=== PATIENT | male | born 1955 | race Caucasian/White ===

== ENCOUNTER 2018-05-25 12:03 | Day surgery (SDC) | payer BC ==
[~2018-05-25] VITALS: Ht 167.6 cm; Wt 59.8 kg
[2018-05-25] VITALS (10 sets, daily range): BP systolic 118–160; BP diastolic 48–87; PULSE 50–71; TEMP 97.4–97.7
[~2018-05-25 12:03] MED LIST: FLOMAX 0.40.4 MG/CAP PO; PERCOCET 325 MG1 TA2 PO; ULTRAM 50MG TAB50 MG PO
[2018-05-25] MEDS ORDERED: TENORMIN 2525 MG/TAB PO (12:59)
[2018-05-25] MEDS ORDERED: ULTRAM 50MG TAB50 MG PO (13:00)
[2018-05-25] MEDS ORDERED: MEVACOR40 MG PO (13:00)
[2018-05-25] MEDS ORDERED: ALTACE 5MG5 MG PO (13:00)
[2018-05-25] MEDS ORDERED: SYNTHROID0.1 MG/TAB PO (13:01)
[2018-05-25] MEDS ORDERED: ASPIRIN E.C. 8181 MG PO (13:04)
[2018-05-25] MEDS ORDERED: NATURAL POTASS595 MG PO (13:05)
--- NOTE | 2018-05-25 13:31 | NUR ---
new client banking services clerk consult placed due to pt stating "I cannot afford my medications or pick them up." Pt primary relies on his daughter to help transport but states she is not very dependable at times. Pt has not been taking prescribed medications for a month or more.
--- NOTE | 2018-05-25 15:25 | NUR ---
Pt to GI bay 6 via cart from PACU. Pt awake and alert. Denies pain. Pt feeling like he needs to void. Urinal placed for pt. Side rails up x2. Call light within reach.
--- NOTE | 2018-05-25 15:40 | NUR ---
Pt voids 100ml villagran red urine. Pt c/o pain to right flank. Muffin, juice and water given per pt request. Will continue to monitor. Call light within reach.
--- NOTE | 2018-05-25 15:57 | NUR ---
XAVIER met with patient's , Aisha, and daughter about not being able to afford medications. Aisha reports patient does have insurance and they normally get the medications from [facility]. Patient reports they are planning to switch to [facility] pharmacy because it is a less expensive options. SW also informed Aisha about [facility]. Aisha was not aware of this program but will utilize it. XAVIER reported back to patient's nurse.
--- NOTE | 2018-05-25 16:55 | NUR ---
The patient appears to be resting comfortably on the cart at this time. The patient appears to be tolerating the food and drink well. The patient's family was brought back to be at his bedside at this time.
[2018-05-25] MEDS ORDERED: PYRIDIUM 100MG100 MG PO (17:09)
[2018-05-25] MEDS ORDERED: NORCO 325 MG-51 TAB PO (17:10)
--- NOTE | 2018-05-25 17:20 | NUR ---
The patient was given a dose of Percocet one tab at this time for complaints of pain. The patient's remains at his besdide at this time. The patient voided another 100 ml of villagran red urine at this time. The patient's requests another muffin for the patient at this time. Will continue to monitor the patient.
--- NOTE | 2018-05-25 17:35 | NUR ---
The patient has given a PRN dose of Azo at this time for complaints of burning with urination. Call light is within reach. Was given a second muffin at this time. Will continue to monitor the patient.
--- NOTE | 2018-05-25 17:49 | NUR ---
The patient's daughter ,Mackenzie was called to review his discharge paperwork and drive the patient home. She states she is "20 minutes away". The nurse instructed her on how to notify the staff when she arrives to the waiting room.
--- NOTE | 2018-05-25 18:10 | NUR ---
The patient appears to be resting comfortably on the cart at this time. The patient voided another 75 ml of light red urine. Call light is within reach. Will continue to monitor the patient.
--- NOTE | 2018-05-25 19:20 | NUR ---
The patient's IV to his right forearm was removed and a pressure dressing was applied to the site. Discharge instructions were reviewed with the patient and his at this time. They both verbalized understanding and questions were answered at this time. The nurse instructed the patient to get dressed and notify the staff when he is ready to be escorted out.
--- NOTE | 2018-05-25 19:42 | NUR ---
The patient was escorted out via wheelchair to a private vehicle by ROSS [facility]. The patient's belongings and discharge paperwork were sent with him. The patient's daughter is present to drive her home.
== END 2018-05-25 19:42 | disposition home or self-care (01) ==
LOC: SDCO 12:03
DX: N21.0 Calculus in bladder (principal); N20.0 Calculus of kidney; I25.10 Atherosclerotic heart disease of native coronary artery without angina pectoris; I25.2 Old myocardial infarction; I10 Essential (primary) hypertension; E03.9 Hypothyroidism, unspecified; E78.00 Pure hypercholesterolemia, unspecified; Z87.442 Personal history of urinary calculi; Z95.1 Presence of aortocoronary bypass graft; Z79.899 Other long term (current) drug therapy; Z79.82 Long term (current) use of aspirin
CPT/HCPCS: C1769; C2617; J0690; J2405; J2704; J3010; J7120; Q9967

== ENCOUNTER 2018-06-01 14:53 | Day surgery (SDC) | payer BC ==
[~2018-06-01] VITALS: Ht 167.8 cm; Wt 59.8 kg
[2018-06-01] VITALS (7 sets, daily range): BP systolic 119–170; BP diastolic 2–79; PULSE 43–73; TEMP 97.3–98.5
[~2018-06-01 14:53] MED LIST changes: +ALTACE 5MG5 MG PO; +ASPIRIN E.C. 8181 MG PO; +MEVACOR40 MG PO; +NATURAL POTASS595 MG PO; +NORCO 325 MG-51 TAB PO; +PYRIDIUM 100MG100 MG PO; +SYNTHROID0.1 MG/TAB PO; +TENORMIN 2525 MG/TAB PO
--- NOTE | 2018-06-01 15:14 | NUR ---
Pt admitted to room 301 via ambulation. with pt. Nurse explaines precautions due to bed bugs. Pt and voice understanding and are aware they have a bed bug issue at home. Pt orientated to shower. Pt going to shower then will we will finish the preop procedures. Daughter "Mackenzie" brought pt and in. States "I cannot stay I have to go parts picker my boys. Call me if you need something or when they are ready to be picked up." Phone number placed on chart.
--- NOTE | 2018-06-01 16:50 | NUR ---
Preop admission complete. While doing assesment and RXm, pt and voice that the only medication pt is taking is Atenolol. Pt is unable to afford medication. Nurse asks how pt is eating and if they are able to afford proper meals. and pt state they are not able to afford proper groceries, and that their daughter Mackenzie is not able to help much. director of women's services had consulted with pt and last admission (05/25/17) and services were denied at this time. Pt and are now requesting help with prescriptions and food. Pt unable to work due to illness and pt states "We have been waiting for our tax returns but they have not come yet." Pt's heart rate is 43. B.Imelda [employer] OPERATOR [employer] notified. No new orders at this time. Report given to Medical nurse.
--- NOTE | 2018-06-02 00:06 | NUR ---
Report received at approximately 2130. Patient arrived to floor at approximately 2140. VS: 98.5 61 18 170/64 99% RA. Denied having pain and discomfort. Patient able to urinate. Hematuria with no clots present. Encouraged to drink plenty of fluids. Patient able to eat and drink without any complaints of nausea. Tolerated food and fluids well. Patient's was at bedside. called daughter at approximately 2305 to come picker and sorter load and unload patient. Went over discharge paperwork with patient at 2320. Voiced no needs or concerns at that time. INT D/C'd to right forearm. Asked patient if he needed any help getting changed, and denied. Patient finished getting changed and ready to go at approximately 2355. This nurse took patient down to front door where patient said daughter would be. After about 5 minutes, this nurse called daughter who then drove up to front entrance. Patient discharged facility at 0003.
== END 2018-06-02 00:03 | disposition home or self-care (01) ==
LOC: SDCO 14:53 → PEDS 14:54 → SDCO 18:00
DX: N20.0 Calculus of kidney (principal); I25.10 Atherosclerotic heart disease of native coronary artery without angina pectoris; I10 Essential (primary) hypertension; E03.9 Hypothyroidism, unspecified; Z95.1 Presence of aortocoronary bypass graft; E78.00 Pure hypercholesterolemia, unspecified; I25.2 Old myocardial infarction; Z87.442 Personal history of urinary calculi; Z79.899 Other long term (current) drug therapy; Z79.82 Long term (current) use of aspirin; Z80.0 Family history of malignant neoplasm of digestive organs
CPT/HCPCS: OP; C1769; C2617; J0330; J0690; J1100; J1885; J2704; J3010; J7120; Q9967